=== PATIENT | female | born 1985 ===

== ENCOUNTER 2025-07-24 10:18 | Outpatient (REF) | payer OTHER, SELFPAY ==
[2025-07-24 11:39] LABS: MANUAL DIFF FLAG NO
[2025-07-24 11:59] LABS: Hematocrit 38.3 % (37.0-47.0); Hemoglobin 12.6 g/dl (12.0-16.0); Imm Gran Abs Auto 0.01 X10*3/uL (0.00-0.03); Imm Gran Pct Auto 0.1 % (0.0-0.4); Lymphocytes Absolute Auto 2.9 X10*3/uL (1.2-4.9); Mean Corpuscular HGB Conc 32.9 g/dl (31.0-35.0); Mean Corpuscular Hemoglobin 27.3 pg (27.0-33.0); Mean Corpuscular Volume 83.1 fL (80.0-98.0); NRBC Abs Auto 0.000 X10*3/uL (0.0-0.012); NRBC Pct Auto 0.0 /100WBC (0.0-0.2); Platelet Count 283 X10*3/uL (160-400); Red Blood Count 4.61 X10*6/uL (4.20-5.50); White Blood Count 7.7 X10*3/uL (4.8-10.8)
[2025-07-24 12:10] LABS: Hemoglobin A1C 125.4913 umol/L; Total Hemoglobin (HGBA1C) 3272.6146 umol/L
[2025-07-24 12:24] LABS: Alanine Aminotransferase 15 U/L (0-31); Albumin Level 4.6 g/dL (3.5-5.0); Alkaline Phosphatase 55 U/L (39-117); Anion Gap 10 (12-20); Aspartate Amino Transferase 22 U/L (5-31); Blood Urea Nitrogen 9 mg/dL (9-16); Calcium 8.7 mg/dL (8.4-10.2); Carbon Dioxide 27 mmol/L (22-29); Chloride 106 mmol/L (96-108); Cholesterol 165 mg/dL (<200); Estimated Glomerular Filt Rate > 60; HDL Cholesterol 49 mg/dL (>40); Potassium 4.2 mmol/L (3.3-5.1); Sodium 139 mmol/L (135-145); Total Protein 7.5 g/dL (6.5-8.0); Triglycerides 58 mg/dL (<150)
--- OUTSIDE RECORDS SUMMARY | 2025-07-24 12:35 | XMS_ITS | Clinical Summary ---
Author Organization [facility] Address [address] [place] [address] Phone Care Team Providers Care Door To Door Selling Agent Name Role Phone Caitlin Zacarias MD Primary Care Provider [phone] Allergies Active Allergy Reactions Criticality Noted Date Comments Nsaids (Non-Steroidal Anti-I nflammatory Drug) 03/11/2025 Medications cyclobenzaprine (FLEXERIL) 10 mg tablet Take 1 tablet (10 mg total) by mouth 2 (two) times a day if needed for muscle spasms for up to 10 days. 20 tablet 03/11/2025 Active Social History Tobacco Use Types Packs/Day Years Used Date Smoking Tobacco: Never Assessed Comments Unknown Sex and Gender Information Value Date Recorded Sex Assigned at Female 03/11/2025 2:51 PM EDT Legal Sex Female 1:39 PM EDT Gender Identity Female 03/11/2025 2:51 PM EDT Sexual Orientation Straight 03/11/2025 2: 51 PM EDT Obstetrics History Last Filed Vital Signs Vital Sign Reading Time Taken Comments Blood Pressure 110/54 03/11/2025 2:02 PM EDT Pulse 75 03/11/2025 2:02 PM EDT Temperature 36.6 C (97.9 F) 03/11/2025 2:02 PM EDT Respiratory Rate 18 03/11/2025 2:02 PM EDT Oxygen Saturation 98% 03/11/2025 2:02 PM EDT Inhaled Oxygen Concentration - - Weight 75.8 kg (167 lb) 03/11/2025 2:02 PM EDT Height 160 cm (5' 3 ) 03/11/2025 2:02 PM EDT Body Mass Index 29.58 03/11/2025 2:02 PM EDT Plan of Treatment Health Maintenance Due Date Last Done Comments Breast Cancer Screening 1984 DTaP,Tdap,and Td Vaccines (1 - Tdap) 2003 Hepatitis B Vaccines (1 of 3 - 19+ 3-dose series) 2003 Cervical Cancer Screening: P ap Smear 2005 Depression Screening 11/14/2024 HIV Screening 03/11/2025 Hepatitis C Screening 03/11/2025 Social Influencers of Health Screening 03/11/2025 COVID-19 Vaccine (1 - 2023-2 5 season) 2025 Influenza Vaccine (#1) 2025 HIB Vaccines Aged Out No longer eligi ble based on patient's age to complete this topic HPV Vaccines Aged Out No longer eligi ble based on patient's age to complete this topic Hepatitis A Vaccines Aged Out No long er eligible based on patient's age to complete this topic IPV Vaccines Aged Out No longer eligi ble based on patient's age to complete this topic MMR Vaccines Aged Out No longer eligi ble based on patient's age to complete this topic Meningococcal ACWY Vaccine Aged Out N o longer eligible based on patient's age to complete this topic Meningococcal B Vaccine Aged Out No l onger eligible based on patient's age to complete this topic Pneumococcal Vaccine: Pediat rics (0 to 5 Years) and At-Risk Patients (6 to 49 Years) Aged Out No longer eligible b ased on patient's age to complete this topic RSV Immunization Patients Un meseret 20 months Aged Out No longer eligible b ased on patient's age to complete this topic Varicella Vaccines Aged Out No longer eligible based on patient's age to complete this topic Insurance PLAN [employer] Care Teams Door To Door Selling Agent Relationship Specialty Start Date End Date Caitlin Zacarias MD [address] [phone] PCP - General Internal Medicine 03/11/25
[2025-07-25 08:22] LABS: HBS Num1 2.89 mIU/mL (0-7.99); HBc Num1 0.05 S/CO (0.00-0.79); HBsAGNum1 0.45 S/CO (0.00-0.99); HIV Num 1 0.05 S/CO (0.00-0.99); Hepatitis B Surface Antigen Negative (Negative); ~HepC Num1 0.43 S/CO (0.00-0.79); ~Hepatitis B Surface Antibody NONREACTIVE (Nonreactive); ~Hepatitis C Antibody Nonreactive (Nonreactive)
== END 2025-07-24 10:19 | disposition home or self-care (01) ==
LOC: HO.HHCL 10:18
PROVIDERS: PCP Internal Medicine; Visit Provider Internal Medicine
DX: Z11.4 Encounter for screening for human immunodeficiency virus [HIV] (principal); Z11.59 Encounter for screening for other viral diseases; E66.811 Obesity, class 1; Z68.30 Body mass index [BMI] 30.0-30.9, adult
CPT/HCPCS: 36415; 80053; 80061; 82306; 83036; 84443; 85025; 86704; 86706; 86803; 87340; 87389

== ENCOUNTER 2025-09-11 13:12 | Outpatient (REF) | payer OTHER, SELFPAY ==
--- OUTSIDE RECORDS SUMMARY | 2025-09-11 10:45 | XMS_ITS | Encounter Summary ---
Author Organization [employer] Address [address] [place] [address] [address] [place] [address] Care Team Providers Care Plant Security Guard Name Role Phone Melanie Salamanca MD Primary Care Provide r Reason for Referral * Consultation (Routine) - Closed Specialty Diagnoses / Procedures Referred By Mikayla ordonez Referred To Contact Obstetrics and Gynecology Diagnoses Tubal ligation evaluation Melanie Salamanca MD [address] [place] [address] Phone: tel: [facility]: [facility] [address] [place] [phone] Phone: tel: fax: Referral ID Status Reason Start Date Expiration Date V isits Requested Visits Authorized [id number] Closed Specialty Services Required 09/11/2025 09/11/2026 1 1 Scheduling Instructions Patient was referred to [address] [place] [address] 2nd floor but she was inform they do not do tubal ligation and she should be refer to another facitility like [facility] she was told to call [phone] but they told her she will need a referral Encounter Details Date Type Department Care Team (Latest Contact Info) Description 09/11/2025 10:45 AM EDT Procedure Visit [facility] [address] [place], [place] [phone] Melanie Salamanca MD [address] [place], [place] [phone] Encounter for Papanicolaou smear of cervix; Vaginal discharge; Encounter for BCP ( control pills) initial prescription; Tubal ligation evaluation Social History Tobacco Use Types Packs/Day Years Used Date Smoking Tobacco: Never Passive Smoke Exposure: Never Smokeless Tobacco: Never Alcohol Use Standard Drinks/Week Comments Yes 0 (1 standard drink = 0.6 oz pur e alcohol) Occasionally Alcohol Answer Date Recorded How often do you have a drink containing alcohol ? 0 07/24/2025 How many drinks containing a lcohol do you have on a typical day when you are drinking? 0 07/24/2025 How often do you have six or more drinks on one occasion? 0 07/24/2025 Depression Answer Date Recorded Patient Health Questionnaire-9 Score 1 07/24/2025 Patient Health Questionnaire-9 Score 1 07/24/2025 Last PHQ-9: Questionnaire Data Not on file 0 07/24/2025 Housing Stability Answer Date Recorded What is your housing situation today? I have miranda rosado 07/24/[address] you li ve. Do you have problems with any of the following? None of the above 07/24/2025 Food Insecurity Answer Date Recorded Within the past 12 months, y ou worried that your food would run out before you got money to buy more: Never True 07/24/2025 Within the past 12 months,th e food you bought just didn't last and you didn't have enough money to get more: Never True 08/2025 Transportation Answer Date Recorded In the past 12 months, has l ack of transportation kept you from medical appts, meetings, work or from getting things needed for daily living? No 07/24/2025 Utilities Answer Date Recorded In the past 12 months, has t he electric, gas, oil or water company threatened to shut off services in your home? No 07/24/2025 Depression Answer Date Recorded Patient Health Questionnaire-2 Score 0 07/24/2025 Internet Access Answer Date Recorded Internet Access Q1 Yes 07/24/2025 Internet Access Q2 Not on file 07/24/2025 Comments Unknown Sex and Gender Information Value Date Recorded Sex Assigned at Unknown 05/09/2025 2:43 PM EDT Legal Sex Unknown 05/09/2025 2:42 PM EDT Gender Identity Choose not to disclose 2:43 PM EDT Sexual Orientation Don't know 05/09/2025 2: 43 PM EDT documented as of this encounter Last Filed Vital Signs Vital Sign Reading Time Taken Comments Blood Pressure 88/72 09/11/2025 11:00 AM EDT Pulse 65 09/11/2025 11:00 AM EDT Temperature 36.1 C (97 F) 09/11/2025 11:00 AM EDT Respiratory Rate 15 09/11/2025 11:00 AM EDT Oxygen Saturation 98% 09/11/2025 11:00 AM EDT Inhaled Oxygen Concentration - - Weight 81 kg (178 lb 9.6 oz) 09/11/2025 11:00 AM EDT Height 160 cm (5' 3 ) 09/11/2025 11:00 AM EDT Body Mass Index 31.64 09/11/2025 11:00 AM EDT documented in this encounter Progress Notes * Melanie Kellogg MD - 09/11/2025 10:45 AM EDT SUBJECTIVE: Rohit Whitaker is a 39 y.o. year old adult who presents for Pap . Patient denies breast pain, changes in skin, nipple retraction or discharge Patient denies pelvic pain, irregular bleeding, she does report vaginal discharge Patient tells me she was refer for tubal ligation but it is not done at [facility] [place] [place] she needs to be refer to [facility] Patient will like prescription for control pills Social History Social History Narrative Not on file Problem List[1] Tubal ligation evaluation Encounter for screening mammogram for malignant neoplasm of breast Venous insufficiency Class 1 obesity due to excess calories without serious comorbidity with body mass index (BMI) of 30.0 to 30.9 in adult Family History[2] Review of Systems Constitutional: Negative. HENT: Negative. Respiratory: Negative. Cardiovascular: Negative. Genitourinary: Positive for vaginal discharge. Negative for decreased urine volume, difficulty urinating, dyspareunia, dysuria, enuresis, flank pain, frequency, genital sores, hematuria, menstrual problem, pelvic pain, penile discharge, vaginal bleeding and vaginal pain. OBJECTIVE: Vitals: 09/11/25 1100 BP: 88/72 BP Location: Left arm Patient Position: Sitting BP Cuff Size: Adult Pulse: 65 Resp: 15 Temp: 97 ??F (36.1 ??C) TempSrc: Temporal SpO2: 98% Weight: 178 lb 9.6 oz (81 kg) Height: 5' 3 (1.6 m) Physical Exam Exam conducted with a nitrocellulose operator present. Constitutional: Appearance: Normal appearance. Cardiovascular: Rate and Rhythm: Normal rate and regular rhythm. Pulmonary: Effort: Pulmonary effort is normal. Breath sounds: Normal breath sounds. Abdominal: General: Abdomen is flat. Palpations: Abdomen is soft. Genitourinary: Exam position: Knee-chest position. Vagina: Normal. Cervix: Discharge present. Uterus: Normal. Musculoskeletal: Right lower leg: No edema. Left lower leg: No edema. Neurological: Mental Status: Rohit is alert. Follow Up: No follow-ups on file. Medications Ordered Prior to Encounter[3] Problem List Items Addressed This Visit Encounter for Papanicolaou smear of cervix PAP and pelvic exam done patient will be contacted with results Relevant Medications drospirenone-ethinyl estradiol (Cornelia, Gianvi) 3-0.02 MG tablet Other Relevant Orders Pap Smear Vaginal discharge Relevant Medications drospirenone-ethinyl estradiol (Cornelia, Gianvi) 3-0.02 MG tablet Other Relevant Orders Bacterial Vaginosis Panel Chlamydia/N. Gonorrhoeae RNA, TMA, Vaginal Encounter for BCP ( control pills) initial prescription Counseling about side effects including clots, DVT, stroke done, patient is non smoker Initial prescription send to pharmacy Relevant Medications drospirenone-ethinyl estradiol (Cornelia, Gianvi) 3-0.02 MG tablet Tubal ligation evaluation Relevant Orders Referral to Obstetrics / Gynecology [1] Patient Active Problem List Diagnosis Tubal ligation evaluation Encounter for screening mammogram for malignant neoplasm of breast Venous insufficiency Class 1 obesity due to excess calories without serious comorbidity with body mass index (BMI) of 30.0 to 30.9 in adult Encounter for Papanicolaou smear of cervix Vaginal discharge Encounter for BCP ( control pills) initial prescription [2] No family history on file. [3] No current outpatient medications on file prior to visit. No current facility-administered medications on file prior to visit. documented in this encounter Miscellaneous Notes * Assessment & Plan Note - Melanie Kellogg MD - 09/11/2025 11:34 AM EDT Associated Problem(s): Encounter for Papanicolaou smear of cervix PAP and pelvic exam done patient will be contacted with results * Assessment & Plan Note - Melanie Kellogg MD - 09/11/2025 11:33 AM EDT Associated Problem(s): Encounter for BCP ( control pills) initial prescription Counseling about side effects including clots, DVT, stroke done, patient is non smoker Initial prescription send to pharmacy documented in this encounter Plan of Treatment Scheduled Orders Name Type Priority Associated Diagnoses Orde r Schedule Pap Smear Pathology and Cytology Routine Encounter for Papanicolaou smear of cervix Ordered: 09/11/2025 Scheduled Referrals Name Type Priority Associated Diagnoses Order Schedule Referral to Obstetrics / Gynecology Outpatient Referral Routine Tubal ligation evaluation Expected: 09/11/2025 (Approximate), Expires: 09/11/2026 documented as of this encounter Procedures Procedure Name Priority Date/Time Associated Diagnosis Comments BACTERIAL VAGINOSIS PANEL Routine 09/11/2025 11:32 AM EDT Vaginal discharge CHLAMYDIA/N. GONORRHOEAE RNA, TMA, UROGENITAL Routine 09/11/2025 11:32 AM EDT Vaginal discharge documented in this encounter Results * Chlamydia/N. Gonorrhoeae RNA, TMA, Vaginal (09/11/2025 11:32 AM EDT) CT PCR NOT DETECTED Not Detect. [facility] Comment:A not detected test result does not exclude the possibilityof infection because test results can be affected byimproper specimen collection, concurrent antibiotic therapy,or the number of organisms in the specimen which may bebelow the sensitivity of the test. As with many diagnostictests, results from the Xpert CT/NG assay should beinterpreted in conjunction with other laboratory andclinical data available to the clinician.Xpert CT/NG performance has not been evaluated in patientsless than 14 years of age. The assay should not be used forthe evaluationof suspected sexual abuse or for other medico-legalindications. Additional testing is recommended in anycircumstance when false positive or false negative resultscould lead to adverse medical, social or psychologicalconsequences. NG PCR NOT DETECTED Not Detect. [facility] Comment:A not detected test result does not exclude the possibilityof infection because test results can be affected byimproper specimen collection, concurrent antibiotic therapy,or the number of organisms in the specimen which may bebelow the sensitivity of the test. As with many diagnostictests, results from the Xpert CT/NG assay should beinterpreted in conjunction with other laboratory andclinical data available to the clinician.Xpert CT/NG performance has not been evaluated in patientsless than 14 years of age. The assay should not be used forthe evaluationof suspected sexual abuse or for other medico-legalindications. Additional testing is recommended in anycircumstance when false positive or false negative resultscould lead to adverse medical, social or psychologicalconsequences. Swab Cervical swab / Unknown 09/11/2025 11:32 AM EDT 09/11/2025 1:15 PM EDT Melanie Kellogg MD LAB MICROBIOLOGY - NERAL ORDERABLES Final Result [facility] [address] [place] [phone] * (ABNORMAL) Bacterial Vaginosis Panel (09/11/2025 11:32 AM EDT) TRICHOMONAS VAGINALIS DETECTION BY PCR NOT DETECTED Not Detect [facility] BACTERIAL VAGINOSIS DETECTION BY PCR NEGATIVE Negative [facility] Comment:The BV organism targ ets of the Xpert Xpress MVP test can becommensal in women; Xpert Xpress MVP positive results forbacterial vaginosis should be considered in conjunction withother clinical and patient information to determine thedisease status. Organisms that are not detected by the XpertXpress MVP test have also been reported to be associatedwith BV and aerobic vaginitis.The Xpert Xpress MVP test performance has not been evaluatedin patients under the age of 14. CARLINE GROUP DETECTION BY PCR DETECTED(A) Not Detect [facility] Carline glab krusei PCR NOT DETECTED Not Detect [facility] Swab Vaginal structure / Unknown 09/11/2025 11:32 AM EDT 09/11/2025 1:15 PM EDT us Melanie Kellogg MD LAB MICROBIOLOGY - GE NERAL ORDERABLES Final Result [facility] [address] [place] [phone] documented in this encounter Visit Diagnoses Diagnosis Encounter for Papanicolaou smear of cervix Vaginal discharge Leukorrhea, not specified as infective Encounter for BCP ( control pills) initial prescription General counseling for prescription of oral contraceptives Tubal ligation evaluation Other specified pre-operative examination documented in this encounter Additional Health Concerns Assessment Noted Time PHQ-9 Depression Total Score: 1 07/24/20 9:35 AM EDT documented as of this encounter Care Teams Plant Security Guard Relationship Specialty Start Date End Date Melanie Salamanca MD [address] [place] [phone] PCP - General Internal Medicine 07/24/25 documented as of this encounter
[2025-09-11 15:42] LABS: Bacterial Vaginosis PCR NEGATIVE (Negative); Candida Group PCR DETECTED (Not Detect); Candida glab krusei PCR NOT DETECTED (Not Detect); Trichomonas vaginalis PCR NOT DETECTED (Not Detect)
[2025-09-11 16:13] LABS: CT PCR NOT DETECTED (Not Detect.); NG PCR NOT DETECTED (Not Detect.)
--- OUTSIDE RECORDS SUMMARY | 2025-09-11 16:47 | XMS_ITS | Clinical Summary ---
Author Organization [facility] Address [address] [place] [address] Phone Care Team Providers Care Front Load Trash Truck Driver Name Role Phone Caitlin Zacarias MD Primary Care Provider [phone] Allergies Active Allergy Reactions Criticality Noted Date [...] Cervical Cancer Screening: P ap Smear 2005 HPV Vaccines (1 - 3-dose SCD M series) 2011 Depression Screening 11/14/2024 HIV Screening 03/11/2025 Hepatitis C Screening 03/11/2025 Social Influencers of Health Screening 03/11/2025 COVID-19 Vaccine (1 - 2023-2 5 season) 2025 Influenza Vaccine (#1) 2025 RSV Immunization Adult Patie nts (1 - 1-dose 75+ series) 2059 HIB Vaccines Aged Out No longer eligi [...] patient's age to complete this topic Insurance [facility] PLAN [employer] Care Teams Front Load Trash Truck Driver Relationship Specialty Start Date End Date Caitlin Zacarias MD [address] [place] [phone] PCP - General Internal Medicine 03/11/25
--- OUTSIDE RECORDS SUMMARY | 2025-09-11 16:47 | XMS_ITS | Encounter Summary ---
Author Organization [employer] Address [address] [facility] [address] [place] [address] Care Team Providers Care Display Coordinator Name Role Phone Melanie Salamanca MD Primary Care Provide r Encounter Details Date Type Department Care Team (Latest Contact Info) Description 09/11/2025 Travel Social History Tobacco Use Types Packs/Day Years [...] PM EDT documented as of this encounter Plan of Treatment Not on file documented as of this encounter Visit Diagnoses Not on filedocumented in this encounter Additional Health Concerns Assessment Noted Time PHQ-9 Depression Total Score: 1 07/24/20 9:35 AM EDT documented as of this encounter Care Teams Display Coordinator Relationship Specialty Start Date End Date Melanie Salamanca MD [address] [place] [address] PCP - General Internal Medicine 07/24/25 documented as of this encounter
--- OUTSIDE RECORDS SUMMARY | 2025-09-11 16:47 | XMS_ITS | Encounter Summary ---
Author Organization [employer] Address [address] [facility] 7t [place] [address] Care Team Providers Care Mental Hygiene Consultant Name Role Phone Melanie Salamanca MD Primary Care Provide r Encounter Details Date Type Department Care Team ([facility] st Contact Info) Description 09/11/2025 Orders Only [facility] [address] [place], [place] [phone] Melanie Salamanca MD [address] [place] [address] Yeast infection (Primary Dx) Social History Tobacco Use Types Packs/Day Years [...] documented as of this encounter Visit Diagnoses Diagnosis Yeast infection- Primary documented in this encounter Additional Health Concerns Assessment Noted Time PHQ-9 Depression Total Score: 1 07/24/20 25 9:35 AM EDT documented as of this encounter Care Teams Mental Hygiene Consultant Relationship Specialty Start Date End Date Melanie Salamanca MD [address] [place] [phone] PCP - General Internal Medicine 07/24/25 documented as of this encounter
--- OUTSIDE RECORDS SUMMARY | 2025-09-11 16:47 | XMS_ITS | Encounter Summary ---
Author Organization [employer] Address [address] [facility] [address]t [place] [address] Care Team Providers Care Mechanical Specialist Name Role Phone Melanie Salamanca MD Primary Care Provide r Encounter Details Date Type Department Care Team (Latest Contact Info) Description 09/10/2025 Travel Social History Tobacco Use Types Packs/Day [...] documented as of this encounter Care Teams Mechanical Specialist Relationship Specialty Start Date End Date Melanie Salamanca MD [address] [place] [address] PCP - General Internal Medicine 07/24/25 documented as of this encounter
--- OUTSIDE RECORDS SUMMARY | 2025-09-11 16:47 | XMS_ITS | Clinical Summary ---
Author Organization [employer] Address [address] [facility] [address] [place] [address] Care Team Providers Care Tin Can Laborer Name Role Phone Melanie Salamanca MD Primary Care Provide r Allergies Active Allergy Reactions Criticality Noted Date Comments Ibuprofen 07/24/2025 Medications drospirenone-ethi nyl estradiol (Amos Locke) 3-0.02 MG tabletIndications :Encounter for BCP ( control pills) initial prescription Take 1 tablet by mouth Once per day. 28 tablet 3 5 09/11/20 26 Active clotrimazole (Lotrimin) 1 % vaginal creamIndications: Yeast infection Insert 1 applicator into the vagina in the evening for 7 days. 45 g 5 09/18/20 25 Active Active Problems Problem Noted Date Diagnosed Date Encounter for Papanicolaou smear of cervix 09/11 Assessment & Plan (09/11/2025 11:34 AM EDT): PAP and pelvic exam done patient will be contacted with results Vaginal discharge 09/11/2025 Encounter for BCP ( con trol pills) initial prescription 09/11/2025 Assessment & Plan (09/11/2025 11:33 AM EDT): Counseling about side effects including clots, DVT, stroke done, patient is non smoker Initial prescription send to pharmacy Tubal ligation evaluation 07/24/2025 Encounter for screening mamm ogram for malignant neoplasm of breast 07/24/2025 Venous insufficiency 07/24/2025 Assessment & Plan (07/24/2025 10:59 AM EDT): Elevate legs and use compression stockings as needed Class 1 obesity due to exces s calories without serious comorbidity with body mass index (BMI) of 30.0 to 30.9 in adult 07/24/2025 Assessment & Plan (07/24/2025 10:59 AM EDT): Extensive counseling about healthy diet and exercise done today Blood work ordered today patient will be contacted with results Encounters Date Type Department Care Team Description 09/11/2025 10:45 AM EDT Procedure Visit [address] [address] Melanie Salamanca MD Encounter for Papanicolaou smear of cervix; Vaginal discharge; Encounter for BCP ( control pills) initial prescription; Tubal ligation evaluation 09/11/2025 Results Follow-Up [address] [address] Melanie Salamanca MD Bacterial Vaginosis Panel, Chlamydia/N. Gonorrhoeae RNA, TMA, Vaginal 09/11/2025 Orders Only [address] [address] Melanie Salamanca MD Yeast infection (Primary Dx) 09/11/2025 Travel 09/10/[address] [address] Melanie Salamanca MD chart prep 09/10/2025 Travel 07/24/2025 9:30 AM EDT Office Visit [address] [address] Melanie Salamanca MD Venous insufficiency (Primary Dx); Tubal ligation evaluation; Allergy history, drug; Encounter for screening mammogram for malignant neoplasm of breast; Class 1 obesity due to excess calories without serious comorbidity with body mass index (BMI) of 30.0 to 30.9 in adult; Dietary counseling; Exercise counseling 07/24/2025 Travel 07/23/[address] [address] Giuseppe Irizarry MD Insurance 07/23/2025 Telephone [facility] [address] [place] [address] Melanie Salamanca MD Chart Prep 07/16/2025 Patient Outreach [facility] [address] [place] [address] Melanie Salamanca MD Pre-visit Planning ((Unable to reach for PVP screening, LVM) to be completed in office ) from Last 3 Months Social History Tobacco Use Types Packs/Day Years Used Date Smoking Tobacco: Never Passive Smoke Exposure: Never Smokeless Tobacco: Never Tobacco Cessation:Counseling Given: Not Answered Alcohol Use Standard Drinks/Week Comments Yes 0 [...] Don't know 05/09/2025 2: 43 PM EDT Last Filed Vital Signs Vital Sign Reading [...] Mass Index 31.64 09/11/2025 11:00 AM EDT Plan of Treatment Health Maintenance Due Date Last Done Comments Family Planning (PISQ) 1999 HPV Vaccines (1 - 3-dose series) 1999 Pap Smear 2005 Cervical Cancer Screening 2014 HPV/Cotest 2014 Hepatitis B Vaccines (2 of 2 - CpG 2-dose series) 10/10/2023 09/12/2023 Mammogram 2024 COVID-19 Vaccine (1 - 2023-2 5 season) 2025 Influenza Vaccine (#1) 2025 , 09/12/2023 Alcohol/Substance Use Screening 07/24/2026 07/24/2025 Depression Screening 07/24/2026 07/24/2025, 07/24/2025 Diabetes: Hemoglobin A1C 07/24/2026 07/24/2025 Disability Screening 07/24/2026 07/24/2025 SDOH Screening 07/24/2026 07/24/2025 Tobacco Screening 09/11/2026 09/11/2025 Lipid Panel 07/24/2030 07/24/2025 DTaP/Tdap/Td Vaccines (2 - T d or Tdap) 09/12/2033 09/12/2023 Zoster Vaccines (1 of 2) 2034 RSV Patients and Patients Aged 60 years or older (1 - 1-dose 75+ series) 2059 HIV Screening Completed 07/24/2025 Hepatitis C Screening Completed 07/24/2025 HIB Vaccines Aged Out No longer eligi [...] patient's age to complete this topic Meningococcal Vaccine Aged Out No yusuf leanne eligible based on patient's age to complete this topic Pneumococcal Vaccine: Pediatrics (0 to 5 Years) and At-Risk Patients (6 to 49) Years Aged Out No longer eligible b ased on patient's age to complete this topic RSV under 20 months Aged Out No longe r eligible based on patient's age to complete this topic Rotavirus Vaccines Aged Out No longer eligible based on patient's age to complete this topic Procedures Procedure Name Priority Date/Time Associated Diagnosis Comments CHLAMYDIA/N. GONORRHOEAE RNA, TMA, UROGENITAL Routine 09/11/2025 11:32 AM EDT Vaginal discharge BACTERIAL VAGINOSIS PANEL Routine 09/11/2025 11:32 AM EDT Vaginal discharge HEPATITIS B CORE AB TOTAL Routine 07/24/2025 10:30 AM EDT Class 1 obesity due to excess calories without serious comorbidity with body mass index (BMI) of 30.0 to 30.9 in adult HEPATITIS B SURFACE ANTIGEN, EIA Routine 07/24/2025 10:30 AM EDT Class 1 obesity due to excess calories without serious comorbidity with body mass index (BMI) of 30.0 to 30.9 in adult HEPATITIS B SURFACE ANTIBODY, QUALITATIVE Routine 07/24/2025 10:30 AM EDT Class 1 obesity due to excess calories without serious comorbidity with body mass index (BMI) of 30.0 to 30.9 in adult TSH W/REFLEX TO FT4 Routine 07/24/2025 1 0:30 AM EDT Class 1 obesity due to excess calories without serious comorbidity with body mass index (BMI) of 30.0 to 30.9 in adult VITAMIN D,25-OH,TOTAL,IA Routine 07/24/2025 10:30 AM EDT Class 1 obesity due to excess calories without serious comorbidity with body mass index (BMI) of 30.0 to 30.9 in adult LIPID PANEL, STANDARD Routine 07/24/2025 10:30 AM EDT Class 1 obesity due to excess calories without serious comorbidity with body mass index (BMI) of 30.0 to 30.9 in adult HEPATITIS C AB W/REFL TO HCV RNA, QN, PCR Routine 07/24/2025 10:30 AM EDT Class 1 obesity due to excess calories without serious comorbidity with body mass index (BMI) of 30.0 to 30.9 in adult HIV 1/2 ANTIGEN/ANTIBODY, FOURTH GENERATION W/RFL Routine 07/24/2025 10:30 AM EDT Class 1 obesity due to excess calories without serious comorbidity with body mass index (BMI) of 30.0 to 30.9 in adult COMPREHENSIVE METABOLIC PANEL Routine 07/24/2025 10:30 AM EDT Class 1 obesity due to excess calories without serious comorbidity with body mass index (BMI) of 30.0 to 30.9 in adult CBC WITH AUTO DIFFERENTIAL Routine 07/24/2025 10:30 AM EDT Class 1 obesity due to excess calories without serious comorbidity with body mass index (BMI) of 30.0 to 30.9 in adult HEMOGLOBIN A1C Routine 07/24/2025 10:20 AM EDT Class 1 obesity due to excess calories without serious comorbidity with body mass index (BMI) of 30.0 to 30.9 in adult from Last 3 Months Results * (ABNORMAL) Bacterial Vaginosis Panel (09/11/2025 11:32 AM EDT) Pathologist [facility] TRICHOMONAS VAGINALIS DETECTION BY PCR NOT DETECTED Not Detect [facility] BACTERIAL VAGINOSIS DETECTION BY PCR NEGATIVE Negative [facility] Comment:The BV organism targ ets of [...] GROUP DETECTION BY PCR DETECTED(A) Not Detect [facility] Carline glab krusei PCR NOT DETECTED Not Detect [facility] Swab Vaginal structure / Unknown 09/11/2025 11:32 AM EDT 09/11/2025 1:15 PM EDT Melanie Kellogg MD LAB MICROBIOLOGY - [facility] ORDERABLES Final Result [facility] [address] [place] [phone] * Chlamydia/N. Gonorrhoeae RNA, TMA, Vaginal (09/11/2025 11:32 AM EDT) Pathologist [facility] CT PCR NOT DETECTED Not Detect. [facility] Comment:A not detected test result does [...] psychologicalconsequences. NG PCR NOT DETECTED Not Detect. [facility] Comment:A not detected test result does [...] EDT Melanie Kellogg MD LAB MICROBIOLOGY - [facility] ORDERABLES Final Result [facility] [address] [place] [phone] * Vitamin D, 25-Hydroxy, Total, Immunoassay (07/24/2025 10:30 AM EDT) Vitamin D 25-OH Total 45.0 >30 ng/mL [facility] Comment: Health Based Reference Values*< 20 ng/mL Zioulcivo22-24 ng/mL Insufficient> 30 ng/mL Sufficient*Jorge PRIEST. N Engl J Med. 2007;357:266-280There is no well-established upper level of normal vitamin Dlevels. Some laboratories use 50 ng/mL as an upper limit ofnormal. However, toxicity is patient-dependent and may occurat any level. Careful correlation with the patient'spresentation is necessary and, if there is concern forvitamin D toxicity, treatment should be consideredirrespective of the serum level.Care must be taken in interpreting Vitamin D results fromdifferent laboratories and methodologies. Published datademonstrated that results from patients undergoinghemodialysis may show a negative bias when tested withvarious automated 25-OH vitamin D assays when compared toLC-MS/MS.When testing samples from patients whose predominant form ofVitamin D is Vitamin D2, such as patients receiving VitaminD2 supplementation, results that are subtherapeutic shouldbe confirmed with another method such as LC-MS/MS. Blood Venous blood specimen / Unknown 07/24/2025 10:30 AM EDT 07/24/2025 11:50 AM EDT Melanie Kellogg MD LAB BLOOD ORDERABLES Final Result Performing Organization Address [facility] Co de Phone Number [facility] [address] [place] [phone] * TSH with Reflex to Free T4 (07/24/2025 10:30 AM EDT) TSH reflex Free T4 2.09 0.32 - 4.0 uIU/mL [facility] Blood Venous blood specimen / Unknown 07/24/2025 10:30 AM EDT 07/24/2025 11:50 AM EDT us Melanie Kellogg MD LAB BLOOD ORDERABLES Final Result Performing Organization Address [facility]/ZIP Co de Phone Number [facility] [address] [place] [phone] * CBC auto differential (07/24/2025 10:30 AM EDT) White Blood Count 7.7 4.8 - 10.8 X10*3/uL [facility] Red Blood Count 4.61 4.20 - 5.50 X10*6/uL [facility] Hemoglobin 12.6 12.0 - 16.0 g/dl [facility] Hematocrit 38.3 37.0 - 47.0 % [facility] Mean Corpuscular Volume 83.1 80.0 - 98.0 fL [facility] Mean Corpuscular Hemoglobin 27.3 27.0 - 33.0 pg [facility] Mean Corpuscular HGB Conc 32.9 31.0 - 35.0 g/dl [facility] Red Cell Distribution Width 14.1 11.0 - 16.0 % [facility] Platelet Count 283 160 - 400 X10*3/uL [facility] Mean Platelet Volume 10.7 9.4 - 12.3 fL [facility] Neutrophils Percent Auto 55.9 45 - 73 % [facility] Imm Gran Pct Auto 0.1 0.0 - 0.4 % [facility] Lymphocytes Percent Auto 38.0 20 - 40 % [facility] Monocytes Percent Auto 4.9 2 - 11 % [facility] Eosinophils Percent Auto 0.7 0 - 4 % [facility] Basophils Percent Auto 0.4 0 - 2 % [facility] NRBC Pct Auto 0.0 0.0 - 0.2 /100WBC [facility] Neutrophils Absolute Auto 4.3 2.0 - 8.3 x10*3/uL [facility] Imm Gran Abs Auto 0.01 0.00 - 0.03 X10*3/uL [facility] Lymphocytes Absolute Auto 2.9 1.2 - 4.9 X10*3/uL [facility] Monocytes Absolute Auto 0.4 0.1 - 1.2 X10*3/uL [facility] Eosinophils Absolute Auto 0.1 0.0 - 0.4 X10*3/uL [facility] Basophils Absolute Auto 0.0 0.0 - 0.2 X10*3/uL [facility] NRBC Abs Auto 0.000 0.0 - 0.012 X10*3/uL [facility] Blood Venous blood specimen / Unknown 07/24/2025 10:30 AM EDT 07/24/2025 11:34 AM EDT us Melanie Kellogg MD LAB BLOOD ORDERABLES Final Result Performing Organization Address [facility] Co de Phone Number [facility] [address] [place] [phone] * Hepatitis C Antibody with Reflex to HCV, RNA, Quantitative, Real-Time PCR (07/24/2025 10:30 AM EDT) Hepatitis C Antibody Nonreactive Nonreactive [facility] Comment:Antibodies to HCV no t detected; does not exclude early acuteHCV infection. Blood Venous blood specimen / Unknown 07/24/2025 10:30 AM EDT 07/24/2025 11:34 AM EDT us Melanie Kellogg MD LAB BLOOD ORDERABLES Final Result Performing Organization Address [facility] Co de Phone Number [facility] [address] [place] [phone] * Hepatitis B surface antigen, EIA (07/24/2025 10:30 AM EDT) Hepatitis B Surface Ag Negative Negative [facility] Blood Venous blood specimen / Unknown 07/24/2025 10:30 AM EDT 07/24/2025 11:34 AM EDT us Melanie Kellogg MD LAB BLOOD ORDERABLES Final Result Performing Organization Address [facility] Co de Phone Number [facility] [address] [place] [phone] * Hepatitis B Core Antibody, Total (07/24/2025 10:30 AM EDT) Hepatitis B Core Antibody Nonreactive Nonreactive [facility] Blood Venous blood specimen / Unknown 07/24/2025 10:30 AM EDT 07/24/2025 11:34 AM EDT us Melanie Kellogg MD LAB BLOOD ORDERABLES Final Result Performing Organization Address City/State/[facility] Co de Phone Number [facility] [address] [place] [phone] * HIV-1/2 Antigen and Antibodies, Fourth Generation, with Reflexes (07/24/2025 10:30 AM EDT) HIV AB/AG Nonreactive Nonreactive [facility] Comment:HIV-1 p24 Ag and/or HIV-1/HIV-2 Ab not detected.A test result that is nonreactive does not exclude thepossibility of exposure to or infection with HIV-1 and/orHIV-2. Nonreactive results in this assay for individualswith prior exposure to HIV-1 and/or HIV-2 may be due toantigen and antibody levels that are below the limit ofdetection of this assay.[employer] HIV Ag/Ab Combo assay result andsupplemental assay results should be interpreted inconjunction with the patient's clinical presentation,history and other laboratory results. If the results areinconsistent with clinical evidence, additional testing issuggested to confirm the result. Blood Venous blood specimen / Unknown 07/24/2025 10:30 AM EDT 07/24/2025 11:34 AM EDT us Melanie Kellogg MD LAB BLOOD ORDERABLES Final Result Performing Organization Address [facility] de Phone Number [facility] [address] [place] [phone] * Hepatitis B Surface Antibody, Qualitative (07/24/2025 10:30 AM EDT) ~Hepatitis B Surface Antibody NONREACTIVE Nonreactive [facility] Comment:Nonreactive: < 8.00 mIU/mL Blood Venous blood specimen / Unknown 07/24/2025 10:30 AM EDT 07/24/2025 11:34 AM EDT us Melanie Kellogg MD LAB BLOOD ORDERABLES Final Result Performing Organization Address [facility]/State/ZIP Co de Phone Number [facility] [address] [place] [phone] * (ABNORMAL) Lipid Panel, Standard (07/24/2025 10:30 AM EDT) Triglycerides 58 <150 mg/dL [facility] Comment:Desirable Triglyceri de: less than 150 mg/dLBorderline High Triglyceride 150-199 mg/dLHigh Triglyceride: 200-499 mg/dLVery High Triglyceride: greater than or equal to 5OO mg/dL Cholesterol 165 <200 mg/dL [facility] Comment:Desirable Cholestero l: less than 200 mg/dLBorderline High Cholesterol: 200-239 mg/dLHigh Cholesterol: greater than 239 mg/dL LDL Cholesterol Calculated 105(H) <100 mg/dL [facility] Comment:Desirable LDL: less than 100 mg/dLNear Optimal/Above Optimal LDL: 110- 129 mg/dLBorderline High LDL: 130-159 mg/dLHigh LDL: 160-189 mg/dLVery High LDL: greater than or equal to 190 mg/dL HDL Cholesterol 49 >40 mg/dL [facility] Comment:Desirable HDL: great er than 40 mg/dL Note: This HDL assay may give artificially low results in patients with liver disease. Blood Venous blood specimen / Unknown 07/24/2025 10:30 AM EDT 07/24/2025 11:50 AM EDT us Melanie Kellogg MD LAB BLOOD ORDERABLES Final Result [facility] [address] [place] [phone] * (ABNORMAL) Comprehensive Metabolic Panel (07/24/2025 10:30 AM EDT) Sodium 139 135 - 145 mmol/L [facility] Potassium 4.2 3.3 - 5.1 mmol/L [facility] Chloride 106 96 - 108 mmol/L [facility] Carbon Dioxide 27 22 - 29 mmol/L [facility] Anion Gap 10(L) 12 - 20 [facility] Urea Nitrogen (BUN) 9 9 - 16 mg/dL [facility] Creatinine, Serum 0.58 0.5 - 1.4 mg/dL [facility] Estimated Glomerular Filt Rate >60 [facility] Comment:Chronic Kidney Disea se: Estimated GFR < 60 mL/min/[id number] Kidney Disease: Estimated GFR < 15 mL/min/1.73m2 Glucose 90 60 - 115 mg/dL [facility] Calcium 8.7 8.4 - 10.2 mg/dL [facility] Bilirubin, Total 0.5 0.0 - 1.0 mg/dL [facility] Aspartate Amino Transferase 22 5 - 31 U/L [facility] Alanine Aminotransferase 15 0 - 31 U/L [facility] Total Protein 7.5 6.5 - 8.0 g/dL [facility] Albumin Level 4.6 3.5 - 5.0 g/dL [facility] Alkaline Phosphatase 55 39 - 117 U/L [facility] Blood Venous blood specimen / Unknown 07/24/2025 10:30 AM EDT 07/24/2025 11:50 AM EDT us Melanie Kellogg MD LAB BLOOD ORDERABLES Final Result [facility] [address] [place] [phone] * Hemoglobin A1c (07/24/2025 10:20 AM EDT) Hemoglobin A1c 5.7 <6.0 % [facility] Comment:Hemoglobin A1C Refer ence Range Adults: 4.8 - 6.0 % Non diabetic: < 6.0 % Goal: < 7.0 %Additional Action Suggested: > 8.0 %Note: Hemoglobin A1c results are invalid for patients with abnormal amounts of HbF. Blood transfusions may impact the HbA1c concentration in the patient sample. Estimated Average Glucose 117 mg/dL [facility] Comment:eAG = Estimated ave rage glucose which is %A1C expressed asaverage glucose, using the formula of the G4J-IeadgkfConncqu Glucose study (ADAG), Diabetes Care, Vol.31,#8,Jun. 2007 Blood Venous blood specimen / Unknown 07/24/2025 10:20 AM EDT 07/24/2025 11:30 AM EDT Melanie Kellogg MD LAB BLOOD ORDERABLES Final Result [facility] [address] [place] [phone] from Last 3 Months Insurance [facility] 2 Care Teams Tin Can Laborer Relationship Specialty Start Date End Date Melanie Salamanca MD [address] [place] [phone] PCP - General Internal Medicine 07/24/25
--- OUTSIDE RECORDS SUMMARY | 2025-09-11 16:47 | XMS_ITS | Encounter Summary ---
Author Organization [employer] Address [address] [facility] [address] [place] [address] Care Team Providers Care Jewelry Inspector Name Role Phone Melanie Salamanca MD Primary Care Provide r Reason for Visit * Reason Onset Date Comments chart prep 09/10/2025 Encounter Details Date Type Department Care Team ([facility] st Contact Info) Description 09/10/2025 Telephone [facility] [address], [place] [phone] Melanie Salamanca MD [address] [place] [address] chart prep Social History Tobacco Use Types Packs/Day Years [...] the past 12 months, has t he [employer] gas, oil or water company threatened to [...] PM EDT documented as of this encounter Miscellaneous Notes * Telephone Encounter - Oscar Garcia [place] - 09/10/2025 2:34 PM EDT Chart Prep Labs: done Images: done Referrals: complete Vaccines due: Covid, Flu, Hep B, and HPV Screenings: mammogram Overdue care gaps: Not applicable documented in this encounter Plan of Treatment Not on file documented as of this encounter Visit Diagnoses Not on filedocumented in this encounter Additional Health Concerns Assessment Noted Time PHQ-9 Depression Total Score: 1 07/24/20 9:35 AM EDT documented as of this encounter Care Teams Jewelry Inspector Relationship Specialty Start Date End Date Melanie Salamanca MD [address] [place] [address] PCP - General Internal Medicine 07/24/25 documented as of this encounter
== END 2025-09-11 13:13 | disposition home or self-care (01) ==
LOC: HO.HHCLNP 13:12
PROVIDERS: Visit Provider Internal Medicine
DX: Z12.4 Encounter for screening for malignant neoplasm of cervix (principal); Z11.51 Encounter for screening for human papillomavirus (HPV); Z20.2 Contact with and (suspected) exposure to infections with a predominantly sexual mode of transmission; N89.8 Other specified noninflammatory disorders of vagina
CPT/HCPCS: 81515; 87491; 87591; 87626; 88175